=== PATIENT | female | born 1980 | race Asian ===

== ENCOUNTER 2017-05-25 05:44 | Emergency (ER) | payer OTHER ==
[~2017-05-25] VITALS: Ht 147.3 cm; Wt 61.4 kg
[~2017-05-25 05:44] MED LIST: CIPR-198 PO
[2017-05-25 05:48] VITALS: BP 137/89; PULSE 86; RESP 14; O2SAT 99
--- NOTE | 2017-05-25 06:02 | ED.REPORT ---
HPI-Headache Date of Service May 25, 2017 ED Provider: Wilfrid Wynn DO Patient is a 36 year old female with a hx of headaches who presents to the ED complaining of a gradual onset headache that started 4 days ago. Her pain is mostly on the L side and is described as pressure. Her pain prevents her from sleeping. Associated symptoms include nausea, photophobia, and blurred vision. Patient denies an aura or mechanism of injury. She also denies numbness, weakness, vomiting, or any other symptoms. She was seen at urgent care twice but is still not improving. She has tried Tylenol and over the counter migraine medication. Patient reports that this headache is similar to her previous headaches but with a longer duration. She describes this as the worst headache she has ever had. [facility]. Nursing Notes Stated Complaint: HEADACHE Chief Complaint: Headache Nursing Notes Reviewed: Yes Allergies: Coded Allergies: No Known Allergies (Unverified , 05/25/17) Scheduled Ciprofloxacin (Ciprofloxacin) 500 Mg Tablet 500 MG PO BID General Time Seen by MD: 06:02 Chief Complaint Headache Hx Obtained From: Patient Arrived By: Walk-in Sudden in Onset?: No Onset Occurred: 4 days ago Symptom Duration: Since onset Location: : Occipital left: Temporal left Quality: Pressure Radiation: : Does not radiate Recent Healthcare: Recent doctor visit Similar Sx Previous: Yes Risk-Headache )( SAH Risk Stratification No Hypertension, No Polycystic kidney disease RF Statements: Risk factors reviewed )( IC Mass Risk Stratification No HIV RF Statements: Risk factors reviewed Past Medical History Past Medical History Headaches Past Surgical History Denies Smoking History Unknown if Ever Smoker Social History Other Social History: Ambulatory Status Independent Review of Systems Eyes: Reports: Blurred bilateral, Photophobia GI: Reports: Nausea, Denies: Vomiting Neurologic: Reports: Headache, Denies: Numbness, Weakness Complete sys rev & neg: except as marked. Physical Exam Initial Vital Signs Vital Signs (First) Date Time Temp Pulse Resp B/P Pulse Ox O2 Delivery O2 Flow Rate FiO2 05/25/17 05:48 36.5 86 14 137/89 99 Room Air Initial VS: Reviewed, Vital signs normal Respiratory: Breath sounds normal, Clear to auscultation, No respiratory distress Cardiovascular: Regular rate & rhythm, Heart sounds normal, Intact distal pulses Extremities: Vascular intact, Neuro intact Skin: Warm, Dry Psychiatric: Mood/affect normal, Behavior normal, Normal thought content General/Constitutional: Awake, Alert Head / Eyes: Atraumatic, Normocephalic, PERRL, EOMI Neck: Atraumatic, Supple, No meningismus, Full range of motion, Non-tender Neurologic: Oriented X3, Speech NL, No motor deficits, No sensory deficits, CN II - XII intact Interpretation & Diagnostics MRA ANGIOGRAM HEAD WITHOUT CONTRAST IMPRESSION: 1. Extensive occlusive venous sinus thrombosis involving the superior sagittal , right transverse, and right sigmoid sinuses as well as the right internal jugular vein. Consider further evaluation with CT to evaluate extent of thrombus in the neck or thorax. Findings were discussed with Dr. Wynn on 05/25/17 at 8:25 AM. Dictated by: Vlad Donaldson M.D. on 05/25/2017 at 8:16 Approved by: Vlad Donaldson M.D. on 05/25/2017 at 8:25 CT NECK SOFT TISSUE WITH IV CONTRAST: IMPRESSION: 1. Thrombus involving the visualized right transverse sinus, the right sigmoid sinus, and the proximal right internal jugular vein. There is reconstitution of flow in the right internal jugular vein the level of the C3 vertebral body. 2. Bilateral palatine tonsillar enlargement which be reactive or neoplastic. Please correlate clinical data. 3. Findings discussed with Dr. Luis Wynn on 05/25/17 at 0929 hours. Dictated by Roseann Patel MD PhD on 05/25/17 at 0918 Approved by Roseann Patel MD PhD on 05/25/17 at 0936 Lab Results Interpretation Result Diagram: 05/25/17 0625 05/25/17 0625 Test 05/25/17 06:25 05/25/17 06:45 White Blood Count 12.9th/mm3 (3.8-10.1) Red Blood Count 4.30mil/mm3 (3.90-5.20) Hemoglobin 13.0g/dL (12.0-15.6) Hematocrit 37.3% (35.0-46.0) Mean Corpuscular Volume 86.7fL (81-100) Mean Corpuscular Hemoglobin 30.2pg (27.0-35.0) Mean Corpuscular Hemoglobin Concent 34.9% (32.0-37.0) Red Cell Distribution Width 12.9% (12.3-15.4) Platelet Count 249bil/L (150-400) Neutrophils (%) (Auto) 50.8% (40-74) Lymphocytes (%) (Auto) 38.2% (14-46) Monocytes (%) (Auto) 8.2% (4-12) Eosinophils (%) (Auto) 2.0% (0-5) Basophils (%) (Auto) 0.4% (0-3) Erythrocyte Sedimentation Rate 8mm/hr (0-32) Sodium Level 141mEq/L (134-144) Potassium Level 3.7mEq/L (3.5-5.2) Chloride Level 107mEq/L (97-108) Carbon Dioxide Level 19mmol/L (18-29) Blood Urea Nitrogen 11mg/dL (6-20) Creatinine 0.68mg/dL (0.57-1.00) Estimat Glomerular Filtration Rate 139mL/min (>59) Glucose Level 89mg/dL (60-99) Calcium Level 8.4mg/dL (8.5-10.1) C-Reactive Protein 1.1mg/dL (0.0-0.5) Hold Urine Received (Received) CT Head Interpretation CONCLUSION: Findings suspicious for dural venous thrombosis. Additional evaluation brain could be performed with MRI/MRV or CT venogram Study: Head CT no contrast Interpretation / Wet Read by: Interpret - Radiologist, Discussed w radiologist Re-Eval/Medical Decision Med Decision/Clinical Course 36-year-old female presenting with 5 days of headache, found to have extensive venous sinus thrombosis as documented above. Her only identified risk factor for this is new during control. She is at high risk for a venous infarct and needs to be transferred to neuro ICU for monitoring. Her neurologic exam is normal at this time. Her headache has resolved with Toradol, Phenergan, and dexamethasone. She was also given 1 L of normal saline. She was treated with Lovenox 60 mg subcutaneous 1 here, and after consultation with neurology it was recommended she be switched to heparin drip, without the initial bolus. Patient will be transferred via [facility] ambulance to [facility]. I have reviewed the images with the patient and her and answered their questions. They understand and agree with the treatment plan Re-Evaluation/Progress #1: Time of Eval: 07:30 Re-Evaluation/Progress Note: Rechecked pt who's pain is now a 5/10 (although worse when standing). Discussed imaging results. Discussed plan for MRI. Patient understands and agrees with plan. All questions addressed at this time. Re-Evaluation/Progress #2: Time of Eval: 08:41 Re-Evaluation/Progress Note: Rechecked pt who is now feeling much better. She denies SOB. Discussed imaging results. Discussed treatment plan. Patient understands and agrees with plan. All questions addressed at this time. Re-Evaluation/Progress #3: Time of Eval: 10:08 Re-Evaluation/Progress Note: Rechecked pt. Discussed plan for transfer. Patient understands and agrees with plan. All questions addressed at this time. Consultation #1: Call Returned at: 07:24 Note: Discussed CT results with night radiology Consultation #2: Referral / Consult Name: Luis Finnegan MD Consulted With: Neurology Call Returned at: 09:47 Note: Discussed pt's case. Suggests transfer to [facility]. Consultation #3: Consulted With: Neurology Call Returned at: 09:54 Contact Center Assistant: Agrees with eval, Agrees with plan Note: Discussed pt's case with Dr. Luis King with [facility] neurology. He will check bed status for admission. Consultation #4: Consulted With: Neurology Call Returned at: 10:04 Note: Discussed pt's case with Dr. Leo Fowler with [facility] Neurology. Accepts admit. Start Heparin drip without bolus. Transport ALS ground. Counseled Regarding: Diagnosis, Lab results, Need for transfer Discharge & Departure Impression: Primary Impression: Cerebral venous sinus thrombosis Additional Impressions: Headache Headache type: unspecified Headache chronicity pattern: acute headache Intractability: not intractable Qualified Code: R51 - Headache Internal jugular vein thrombosis Laterality: right Qualified Code: I82.C11 - Acute embolism and thrombosis of right internal jugular vein Disposition: Transfer, Acute Care Facility Receiving Hospital: Dr. Leo Fowler, [facility] neuro ICU Transfer Accepted: Yes Transfer Accepted at: 10:04 Transfer Reason: Higher level of care Spoke with: Specialty physician Patient Status: Stable for transfer Patient Informed: Yes Discharge Condition All VS Reviewed: Yes Condition: Stable Referrals: Idania Pinedo DO (PCP) Crit Care Except Billable Proc Time Spent: 30-74 minutes Services Performed: Patient management by me, Time spent at bedside, Reviewing test results, Reviewing imaging, Discussing patient care, Documentation in record, Time with fam/surrogate Scribe Attestation Portions of this note were transcribed by Lisy Martines. I, Dr. Wynn personally performed the history, physical exam and medical decision-making; I reviewed and confirmed the accuracy of the information in the transcribed note. Signed by: Spencer Tang, 05/25/17 copies to: Idania Pinedo Gary R DO May 25, 2017 06:02 LISY MARTINES May 25, 2017 06:15
[2017-05-25] MEDS ORDERED: 0.9% Sodium Chloride 1,000 ML IV ONE (06:17)
[2017-05-25] MEDS ORDERED: Dexamethasone 10 mg/mL Inj IVPUSH ONE (06:20)
[2017-05-25] MEDS ORDERED: Promethazine Inj 25 MG in 0.9% Sodium Chloride 50 ML IV ONE (06:20)
[2017-05-25 06:40] LABS: BASOPHILS % (AUTO) 0.4 % (0-3); MONOCYTES % (AUTO) 8.2 % (4-12); Mean Corpuscular Hemoglobin 30.2 pg (27.0-35.0); Mean Corpuscular Volume 86.7 fL (81-100); NEUTROPHILS % (AUTO) 50.8 % (40-74); Platelet Count 249 bil/L (150-400)
[2017-05-25 07:41] LABS: ERYTHROCYTE SEDIMENTATION RATE 8 mm/hr (0-32)
--- NOTE | 2017-05-25 08:26 | DRSVH ---
PROCEDURE: MRA ANGIOGRAM HEAD WITHOUT CONTRAST ([id number]) INDICATIONS: Venous sinus thrombosis on CT. TECHNIQUE: Sagittal T1 spin echo through the brain. Coronal 2D jyjv-gx-qlnyjl MR venogram, with 3-dimensional m wqzeyj-yfonnvapz-wqmmbegwug (MIP) reformats of the intracranial veins then performed. COMPARISON: [facility], CT, CT BRAIN WO CON, 05/25/2017, 7:04. FINDINGS: Image quality: Diagnostic. Veins: There is no flow-related enhancement demonstrated within the right internal jugular vein, sig moid sinus, or transverse sinus. There is also no flow related enhancement demonstrated within the s uperior sagittal sinus. Findings are compatible with occlusive thrombosis. There is patent flow dem onstrated within the left transverse and sigmoid sinuses as well as the left internal jugular vein. The straight sinus appears patent. Brain: Limited images through the brain parenchyma show no hematoma collections or mass lesions. IMPRESSION: 1. Extensive occlusive venous sinus thrombosis involving the superior sagittal, right transverse, an d right sigmoid sinuses as well as the right internal jugular vein. Consider further evaluation with CT to evaluate extent of thrombus in the neck or thorax. Findings were discussed with Dr. Wynn on 05/25/17 at 8:25 AM. Dictated by: Vlad Donaldson M.D. on 05/25/2017 at 8:16 Approved by: Vlad Donaldson M.D. on 05/25/2017 at 8:25
[2017-05-25 09:37] VITALS: BP 126/83; PULSE 81; RESP 14; O2SAT 99
--- NOTE | 2017-05-25 09:38 | DRSVH ---
PROCEDURE: CT NECK SOFT TISSUES WITH CONTRAST ([id number]) INDICATIONS: Evaluate extent of thrombus TECHNIQUE: After the administration of intravenous contrast, 3.0 mm axial sections acquired from the sella to th e aortic arch. Additional oblique axial 3.0 mm sections acquired through the pharynx. 3 mm thick co stormy reformats were generated. For radiation dose reduction, the following was used: automated exp osure control. COMPARISON: [facility], CT, CT BRAIN WO CON, 05/25/2017, 7:04. [facility], M R, MR ANGIO HEAD WO CON, 05/25/2017, 7:58. FINDINGS: Image quality: Excellent. Lymph nodes: No enlarged lymph nodes seen throughout the neck. Prominent bilateral level II and leve l III neck lymph nodes are noted which do not meet pathologic size criteria. Vessels: Thrombus is noted in the right transverse sinus, right sigmoid sinus and proximal right inte rnal jugular vein. There is reconstitution of flow in the right internal jugular vein level of the C3 vertebral body. Left internal jugular vein is fully patent. There is normal contrast opacification o f the arterial vasculature of the neck. Neck spaces: Slayden tonsils are enlarged bilaterally. The oropharynx, nasopharynx, and pharynx dem onstrate no mucosal lesions. The vocal cords, false vocal cords, pyriform sinuses, epiglottis, garcia cula, and tongue base all appear normal. Extramucosal spaces appear unremarkable. Glands: The parotid and submandibular glands appear normal. Thyroid gland is within normal limits. Miscellaneous: Visualized brain and orbits appear normal. Lung apices appear clear. Superficial so ft tissues appear normal. Bones: No suspicious bony lesions. Visualized sinuses and mastoids appear unremarkable. IMPRESSION: 1. Thrombus involving the visualized right transverse sinus, the right sigmoid sinus, and the proxima l right internal jugular vein. There is reconstitution of flow in the right internal jugular vein the level of the C3 vertebral body. 2. Bilateral palatine tonsillar enlargement which be reactive or neoplastic. Please correlate with cl inical data. [address] Luis Wynn on 05/25/2017 at 0929 hours. Dictated by: Roseann Patel MD, PhD on 05/25/2017 at 9:18 Approved by: Roseann Patel MD, PhD on 05/25/2017 at 9:36
[2017-05-25] MEDS ORDERED: Heparin 25K Unit/500mL 0.45 NS 25,000 UNIT in IV Premix 1 EACH IV SCH (10:10)
--- NOTE | 2017-05-25 13:11 | DRSVH ---
PROCEDURE: CT BRAIN WITHOUT CONTRAST ([id number]) INDICATIONS: worst headache of life TECHNIQUE: Noncontrast 4.5 mm thick angled axial sections acquired from the foramen magnum to the vertex, with c oronal reformats. Final report (concordant with the preliminary interpretation) was delayed due to t echnical PACS issues. COMPARISON: [facility], MR, MR ANGIO HEAD WO CON, 05/25/2017, 7:58. FINDINGS: Image quality: Excellent. CSF spaces: Basal cisterns are patent. No extra-axial fluid collections. Ventricles are normal in size and shape. Brain: No midline shift. Asymmetric hyperdensity seen within the superior sagittal and right transve rse sinus. There is also curvilinear right occipital hyperdensity presumably a thrombosed draining ve in. Castro-white matter interface is normal. Skull and face: Calvarium and visualized facial bones are intact, without suspicious lesions. Sinuses: Visualized sinuses and mastoids are clear. IMPRESSION: Findings likely reflect dural venous thrombosis as above. Findings were discussed with Dr. Wynn in emergency department at 7:25 a.m. on 05/25/[address] Zapata Concordant with preliminary interpretation. Dictated by: Sean Reagan M.D. on 05/25/2017 at 13:03 Approved by: Sean Reagan M.D. on 05/25/2017 at 13:09
== END 2017-05-25 11:24 | disposition short-term general hospital (02) ==
LOC: SED 05:44
DX: G08 Intracranial and intraspinal phlebitis and thrombophlebitis (principal); I82.C11 Acute embolism and thrombosis of right internal jugular vein; R51 Headache
CPT/HCPCS: 36415; 70450; 70491; 70544; 80048; 81025; 85025; 85651; 86140; 96361; 96372; 96374; 96375; 99291; J1100; J1650; J1885; J2550; J7030; Q9967